=== PATIENT | female | born 1980 | race Caucasian/White ===

== ENCOUNTER 2025-05-03 07:14 | Emergency (ER) | payer BC ==
[2025-05-03] MEDS ORDERED: Ketorolac Tromethamine 30 MG (1 mL) VIAL ONE (08:21)
[2025-05-03] MEDS ORDERED: Ondansetron PF 4 MG/2 ML Vial ONE (08:21)
[2025-05-03 08:22] LABS: #Basophils 0.1 thou/uL (0.0-0.2); #Eosinophils 0.1 thou/uL (0.0-0.7); #Lymphocytes 3.1 thou/uL (1.20-3.40); #Monocytes 0.6 thou/uL (0.11-0.59); #Neutrophils 4.5 thou/uL (1.40-6.50); %Basophils 1.4 % (0.0-1.0); %Eosinophils 1.7 % (0.0-10.0); %Lymphocytes 36.6 % (21.0-51.0); %Monocytes 7.0 % (0.0-10.0); %Neutrophils 53.2 % (42.0-75.0); Hematocrit 41.5 % (36.0-47.0); Hemoglobin 12.6 g/dL (12.0-16.0); Mean Corpuscular Hemoglobin 28.7 pg (27.0-31.0); Mean Corpuscular Volume 94.1 fl (78.0-98.0); Platelet Count 266 10x3/uL (130-400); Red Blood Cell (RBC) Count 4.41 mill/uL (4.20-5.40); White Blood Cell (WBC) Count 8.5 10x3/uL (4.8-10.8)
[2025-05-03 08:39] LABS: ALT (SGPT) 31 U/L (Less than 34); AST (SGOT) 29 U/L (11-34); Albumin 4.0 g/dL (3.1-4.5); Alkaline Phosphatase 68 U/L (40-110); Anion Gap 16 mmol/L (10-20); BUN (Urea Nitrogen) 9 mg/dL (7.0-18.7); Bilirubin, Total 0.4 mg/dL (0.3-1.2); Calc. Creatinine Clearance 0 mL/min (70-130); Calcium 8.9 mg/dL (7.8-10.44); Carbon Dioxide 25 mmol/L (22-29); Chloride 103 mmol/L (98-107); Globulin 2.8 g/dL (2.4-3.5); Glucose 117 mg/dL (70-105); Potassium 4.2 mmol/L (3.5-5.1); Sodium 140 mmol/L (136-145)
[2025-05-03 08:44] LABS: Troponin I 0.011 ng/mL (< 0.028)
[2025-05-03] MEDS ORDERED: Azithromycin 250 MG TAB ONE (10:03)
[2025-05-03] MEDS ORDERED: Furosemide 40 MG (4 mL) VIAL ONE (10:03)
[2025-05-03] MEDS ORDERED: Amoxicillin/Potassium Clav 875 MG TAB ONE (10:04)
== END 2025-05-03 10:10 | disposition home or self-care (01) ==
LOC: MADERS 07:14
DX: J18.9 Pneumonia, unspecified organism (principal); I50.9 Heart failure, unspecified
CPT/HCPCS: 71046; 71275; 80053; 83880; 84484; 85025; 87428; 93005; 94760; J1885; J1940; J2405